=== PATIENT | female | born 1965 | race Caucasian/White ===

== ENCOUNTER → 2019-07-13 07:54 | Outpatient (BNVA) | payer OTHER, SELFPAY | PROVIDERS: PCP Family Medicine; Visit Provider Psychiatry & Neurology Psychiatry | DX: F41.1 Generalized anxiety disorder (principal); F43.23 Adjustment disorder with mixed anxiety and depressed mood; F43.12 Post-traumatic stress disorder, chronic | CPT/HCPCS: 99214 ==

== ENCOUNTER → 2019-08-25 07:45 | Outpatient (BNVA) | payer OTHER, SELFPAY | PROVIDERS: PCP Family Medicine; Visit Provider Psychiatry & Neurology Psychiatry | DX: F41.1 Generalized anxiety disorder (principal); F32.4 Major depressive disorder, single episode, in partial remission; F33.2 Major depressive disorder, recurrent severe without psychotic features | CPT/HCPCS: 99214 ==

== ENCOUNTER → 2019-08-27 08:35 | Outpatient (BNVA) | payer OTHER, SELFPAY | PROVIDERS: PCP Family Medicine; Visit Provider Obstetrics & Gynecology | DX: Z01.411 Encounter for gynecological examination (general) (routine) with abnormal findings (principal); Z90.710 Acquired absence of both cervix and uterus; Z12.72 Encounter for screening for malignant neoplasm of vagina; Z12.39 Encounter for other screening for malignant neoplasm of breast; Z78.9 Other specified health status; Z12.11 Encounter for screening for malignant neoplasm of colon | CPT/HCPCS: 88175 ==

== ENCOUNTER → 2020-07-21 09:02 | Outpatient (BNVA) | payer OTHER, SELFPAY | PROVIDERS: PCP Family Medicine; Visit Provider Obstetrics & Gynecology | DX: N95.1 Menopausal and female climacteric states (principal); N89.8 Other specified noninflammatory disorders of vagina; N95.8 Other specified menopausal and perimenopausal disorders; N94.10 Unspecified dyspareunia; N32.81 Overactive bladder | CPT/HCPCS: 83001 ==

== ENCOUNTER → 2020-07-27 13:41 | Outpatient (BNVA) | payer OTHER, SELFPAY | PROVIDERS: PCP Family Medicine; Visit Provider Obstetrics & Gynecology | DX: N94.10 Unspecified dyspareunia (principal) | CPT/HCPCS: 76830 ==

== ENCOUNTER 2021-05-16 06:13 | Emergency (ER) | payer OTHER, SELFPAY ==
[2021-05-16 06:14] VITALS: BP 141/94; PULSE 71; RESP 18; TEMP 36.6; O2SAT 99; BMI 19.8
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
--- NOTE | 2021-05-16 06:24 | ECG_ITS ---
[facility] Test Date: 2021-05-16 Pat Name: Samantha Raymond Department: Room: Gender: Female [employer]: : 1965 Requested By: Adolfo Greenwood Order Number: [id number] Sailaja MD: Leigh Ann Guerrero M.D. Measurements Intervals Barry Rate: 69 P: 79 CO: 176 QRS: 72 QRSD: 94 T: 68 QT: 416 QTc: 447 Interpretive Statements SINUS RHYTHM POSSIBLE LEFT ATRIAL ENLARGEMENT [-0.1mV P-WAVE IN V1/V2] LOW QRS VOLTAGE IN PRECORDIAL LEADS [QRS DEFLECTION < 1.0 mV IN CHEST LEADS] MODERATE T-WAVE ABNORMALITY, CONSIDER ANTERIOR ISCHEMIA [-0.1+ mV T-WAVE IN V3/V4] No previous ECG available for comparison Electronically Signed On 05-16-2021 9:15:30 PUBLIC INFORMATION DIRECTOR by Leigh Ann Guerrero M.D. [id number]
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
[2021-05-16] MEDS: morphine 4 mg/mL SDV 1 mL 6 MG IVP (06:47)
[2021-05-16] MEDS: ondansetron 2 mg/ML SDV 2 mL 4 MG IVP (06:47)
[2021-05-16] MEDS: lactated ringers 1,000 ML 999 ML IV (06:47)
[2021-05-16 06:51] LABS: Basophils # 0.1 10^3/uL (0.0-0.1); Basophils % 0.5 %; Eosinophils % 0.3 %; Hematocrit 44.2 % (37.0-47.0); Hemoglobin 14.5 g/dL (11.5-15.3); Lymphocytes # 1.6 10^3/uL (0.8-4.8); Lymphocytes % 13.1 %; Mean Corpuscular HGB Conc 32.8 g/dL (30.0-36.0); Mean Corpuscular Hemoglobin 29.8 pg (28.0-34.0); Mean Corpuscular Volume 90.9 fl (81-99); Mean Platelet Volume 10.8 fL (7.4-10.4); Monocytes # 0.5 10^3/uL (0.2-0.9); Monocytes % 4.3 %; Neutrophils % 80.1 %; Nucleated Red Blood Cells % 0 %; Platelet Count 254 10^3/cmm (130-400); Red Blood Count 4.86 10^6/uL (4.1-5.3); Red Cell Distribution Width 12.1 % (12.1-15.1); White Blood Count 12.2 10^3/uL (4.0-10.0)
[2021-05-16 07:13] LABS: Alanine Aminotransferase 13 U/L (0-33); Albumin Level 4.7 g/dL (3.5-5.2); Alkaline Phosphatase 89 IU/L (35-105); Anion Gap 15.6 (5-19); Aspartate Amino Transferase 20 U/L (0-32); Blood Urea Nitrogen 10 mg/dL (6-20); Calcium 8.8 mg/dL (8.5-10.5); Carbon Dioxide 23 mmol/L (22-29); Chloride 105 mmol/L (98-107); Globulin 2.5 g/dL (1.3-4.6); Glomerular Filtration Rate 103.8 mL/min (90-130); Glucose 102 mg/dL (65-115); Osmolality Calculated 289 mOsm/kg (285-295); Potassium 3.6 mmol/L (3.5-5.1); Sodium 140 mmol/L (136-145); Total Bilirubin 0.6 mg/dL (0.15-1.2); Total Protein 7.2 g/dL (6.6-8.7)
[2021-05-16 07:13] LABS: Add Urine Microscopic? NO; Charge for UA Resulting for Rev
[2021-05-16 07:16] LABS: Bilirubin Urine Neg (Negative); Blood Urine Neg (Negative); Glucose Urine UA Norm (Normal); Ketones Urine Negative (Negative); Leukocyte Esterase Urine Negative (Negative); Nitrate Urine Negative (Negative); Protein Urine Neg (Negative); Urine Appearance Clear (CLEAR); Urine Color Yellow (Yellow); Urobilinogen Urine Norm (Negative); pH Urine 7 (5-7)
[2021-05-16] MEDS: iohexol 300 mg/mL 100 mL Btl IV (07:17)
[2021-05-16 07:38] VITALS: BP 136/89; PULSE 80; RESP 20; O2SAT 94
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
--- NOTE | 2021-05-16 08:24 | PC.NURSE ---
C-COLLAR REMOVED PER PROVIDER. CT CLEARED.
[2021-05-16 08:26] VITALS: BP 152/103; PULSE 85; RESP 20; O2SAT 95
[2021-05-16] MEDS: morphine 4 mg/mL SDV 1 mL IVP (09:38)
[2021-05-16 10:20] VITALS: BP 152/103; PULSE 88; RESP 20; O2SAT 96
--- NOTE | 2021-05-16 14:08 | DCPLANNER ---
Addendum entered by Marlene Fraga 06/22/21 12:44: Patient had a follow up appointment scheduled for 06.18.21 with [facility] - patient did attend appointment. Addendum entered by Marlene Fraga 05/18/21 14:41: Patient had a follow up appointment scheduled for 05.17.21 with ortho - patient did not attend appointment. Original Note: manager french had message to schedule a follow up appointment for patient with ortho. manager french called the ortho clinic, spoke with Annabella, gave clinic patients information. manager french was told that patients information would be printed and reviewed. Clinic will call patient with appointment information. manager french also had message to schedule a follow up appointment with [facility]. manager french called [facility], spoke with Annabella, gave clinic patients information. A follow up appointment was for Friday, June 18, 2021 at 8:[address] Duenas at [facility]. manager french called phone number [phone], unable to speak with patient and unable to leave a voicemail for patient.
== END 2021-05-16 10:20 | disposition home or self-care (01) ==
PROVIDERS: Emergency Provider Family Medicine; PCP Family Medicine
DX: R59.1 Generalized enlarged lymph nodes (principal); S32.018A Other fracture of first lumbar vertebra, initial encounter for closed fracture; S22.028A Other fracture of second thoracic vertebra, initial encounter for closed fracture; F17.210 Nicotine dependence, cigarettes, uncomplicated; V89.2XXA Person injured in unspecified motor-vehicle accident, traffic, initial encounter
CPT/HCPCS: 71045; 71260; 72125; 72128; 72131; 74177; 80053; 81003; 85025; 93005; 96361; 96374; 96375; 96376; 97530; 97760; 99284; J2270; J2405; L0456; Q9967

== ENCOUNTER → 2022-03-07 10:10 | Outpatient (BNVA) | payer OTHER, SELFPAY | PROVIDERS: PCP Family Medicine; Visit Provider Registered Nurse Neonatal Intensive Care | DX: R50.9 Fever, unspecified (principal); B34.9 Viral infection, unspecified | CPT/HCPCS: 87400; 87426 ==

== ENCOUNTER 2022-08-16 06:36 | Outpatient (CLI) | payer OTHER, SELFPAY ==
--- NOTE | 2022-08-16 08:00 | CT_ITS ---
WS: [id number] LDCT LUNG CANCER SCREENING HISTORY: screen TECHNIQUE: Axial imaging performed from the apices to 1 cm below the costophrenic angles. Coronal and sagittal reformats are submitted with axial MIP series. All CT scans at [facility] use at least one of these dose optimization techniques: automated exposure control; mA and/or kV adjustment per patient size (includes targeted exams where dose is matched to clinical indication); or iterativ e reconstruction. DLP: 32.72 mGy.cm DIvol: Mean CTDIvol: 0.40 (mGy) COMPARISON: 05/16/2021 Diagnostic quality: Satisfactory Lungs: Mild hyperexpansion. Linear area of pleural thickening and scarring RIGHT lower lobe is simila r to 05/16/2021. Scattered granulomata. No mass or nodules. No endobronchial lesions. Heart: Normal size heart with no pericardial effusion. Other findings: No adenopathy. Benign calcified subcarinal lymph node. No adenopathy. Mild atheroscle rosis aorta. No adrenal mass. L1 anterior compression fracture, chronic. CT/CT lung screening [id number] IMPRESSION: LUNG-RADS: 2-Benign Appearance or Behavior FOLLOW UP: 12 Month: Continue annual screening with LDCT OTHER FINDINGS (S MODIFIER): None.
== END 2022-08-16 06:37 | disposition home or self-care (01) ==
LOC: RAD 06:38
PROVIDERS: PCP Family Medicine; Visit Provider Family Medicine
DX: Z12.2 Encounter for screening for malignant neoplasm of respiratory organs (principal); F17.219 Nicotine dependence, cigarettes, with unspecified nicotine-induced disorders
CPT/HCPCS: 71271

== ENCOUNTER 2023-03-26 08:18 | Outpatient (CLI) | payer MEDICAID, SELFPAY ==
--- NOTE | 2023-03-26 08:25 | MM_ITS ---
WS: [id number] BILATERAL 3D TOMOSYNTHESIS DIGITAL SCREENING MAMMOGRAPHY WITH CAD CLINICAL INFORMATION: Z00.00 - Encounter for general adult medical examination ... HISTORY: Screening mammogram. No current complaints. COMPARISON: 2013 TECHNIQUE: Bilateral CC and MLO views. FINDINGS: The breasts are composed of heterogeneous fibroglandular density tissue, which can limit the detectio n of small underlying mass lesions. No suspicious mass, asymmetry, calcifications, or architectural d istortion. No evidence of malignancy. IMPRESSION: MM/[place] [id number] BI-RADS: 1-Negative FOLLOW UP: 1 Year Follow-up Recommend return to annual screening mammography.
--- NOTE | 2023-03-26 08:31 | XRR_ITS ---
PROCEDURE INFORMATION: Exam: XR Cervical Spine Exam date and time: 03/26/2023 8:54 AM Age: 57 years old Clinical indication: Other: Cervical spinal stenosis TECHNIQUE: Imaging protocol: Radiologic exam of the cervical spine. Views: 2 or 3 views. COMPARISON: CT cervical spin wo con* [id number] 05/16/2021 7:06 AM FINDINGS: Bones/joints: Anterior plate and fusion C4 through C6. Anatomic alignment. Disc space narrowing and mild spurring C3-C4 and C6-C7. Soft tissues: The prevertebral soft tissues are normal. No fracture, lytic, or sclerotic bone lesion. XR/XR cervical spine 3V* [id number] IMPRESSION: Postoperative findings without visible complication.
--- NOTE | 2023-03-26 09:46 | XR_ITS ---
WS: [id number] LUMBAR SPINE TECHNIQUE: 3 views of the lumbar spine CLINICAL INFORMATION: ?LUMBAR FX COMPARISON: CT 05/16/2021 FINDINGS: Osteopenia. Mild lumbar curve convex LEFT. Mild compression fracture with anterior wedging at L1 was present in 2021 with slightly more anterior wedging today. Mild disc space narrowing L4-L5 and L5-S1. No other compression fractures. Vascular calcification. Chronic spondylolysis L5-S1 with minimal ant erolisthesis. IMPRESSION: 1. Mild compression fracture with anterior wedging at L1 was present in 2021 with slightly more ante rior wedging today. 2. Chronic spondylolysis L5-S1 with slight grade 1 anterolisthesis. 3. Mild lumbar curve convex LEFT. 4. Osteopenia.
== END 2023-03-26 08:19 | disposition home or self-care (01) ==
LOC: RAD 08:18
PROVIDERS: PCP Family Medicine; Visit Provider Family Medicine
DX: Z12.31 Encounter for screening mammogram for malignant neoplasm of breast (principal)
CPT/HCPCS: 72040; 72100; 77063; 77067

== ENCOUNTER 2023-03-26 09:37 | Outpatient (CLI) | payer OTHER, SELFPAY | END 2023-03-26 09:38 | disposition home or self-care (01) | PROVIDERS: PCP Family Medicine; Visit Provider Dermatology | DX: Z02.71 Encounter for disability determination (principal); M48.56XD Collapsed vertebra, not elsewhere classified, lumbar region, subsequent encounter for fracture with routine healing; M47.817 Spondylosis without myelopathy or radiculopathy, lumbosacral region; M85.88 Other specified disorders of bone density and structure, other site; M48.02 Spinal stenosis, cervical region; Z98.1 Arthrodesis status | CPT/HCPCS: 72040; 72100 ==

== ENCOUNTER 2024-03-17 08:39 | Outpatient (CLI) | payer MEDICAID, SELFPAY ==
--- NOTE | 2024-03-17 08:45 | MR_ITS ---
WS: [id number] MR CERVICAL SPINE WO/W HISTORY: M50.90 - Cervical disc disorder, unspecified, unspecified... TECHNIQUE: Sagittal T1, T2 and T2 inversion recovery; axial T2, T2 gradient and fiesta. Post gadolini um imaging with fat saturation technique. FINDINGS: Straightening of the normal cervical doses. Prior postoperative changes ACDF C4-C6. Cord si gnal is normal. No high-grade central canal stenosis. Mild chronic compression superior plate T2. C2-3: Spinal canal and foramen are patent. C3-4: Mild disc osteophyte complex with endplate ridging. Moderate LEFT and mild RIGHT bony foraminal narrowing. Mild facet arthropathy. Spinal canal is patent. C4-5: Postoperative changes ACDF. Mild bilateral bony foraminal narrowing. Mild facet arthropathy. Sp inal canal is patent. C5-6: Postoperative changes ACDF with susceptibility artifact. Moderate LEFT greater than RIGHT bony foraminal narrowing. Mild facet arthropathy. C6-7: Postoperative changes ACDF. Mild disc osteophyte complex. Moderate LEFT and mild RIGHT bony for aminal narrowing. Spinal canal is patent. Mild facet arthropathy. C7-T1: Shallow central protrusion. Moderate bilateral bony foraminal narrowing. Mild facet arthropath y. Mild central canal stenosis. MR/MR cervical spine wo/w [id number] IMPRESSION: 1. Straightening of the normal cervical lordosis. Postoperative changes ACDF C 4-C6. 2. Mild central canal stenosis C3-C4 and C7-T1. 3. Multilevel moderate bony foraminal narrowing LEFT C3-4, LEFT greater than R IGHT C5-C6 and LEFT C6-7. Moderate bilateral C7-T1 bony foraminal narrowing. 4. Cord signal appears normal.
[2024-03-17] MEDS: gadobenate dimeglumine 20 mL vial 12 ML IV (09:49)
== END 2024-03-17 08:40 | disposition home or self-care (01) ==
LOC: RAD 08:43
PROVIDERS: PCP Family Medicine Adult Medicine; Visit Provider Psychiatry & Neurology Neurology
DX: M50.90 Cervical disc disorder, unspecified, unspecified cervical region (principal); M48.02 Spinal stenosis, cervical region; G95.29 Other cord compression; M47.892 Other spondylosis, cervical region; M25.78 Osteophyte, vertebrae; M50.23 Other cervical disc displacement, cervicothoracic region; Z98.890 Other specified postprocedural states; M47.893 Other spondylosis, cervicothoracic region; M48.03 Spinal stenosis, cervicothoracic region
CPT/HCPCS: 72156

== ENCOUNTER 2024-06-16 13:57 | Outpatient (CLI) | payer MEDICAID, SELFPAY ==
--- NOTE | 2024-06-16 14:15 | CT_ITS ---
WS: [id number] LDCT LUNG CANCER SCREENING HISTORY: jessica dep remission; quit 2022; 41pk yr; screening TECHNIQUE: Axial imaging performed from the apices to 1 cm below the costophrenic angles. Coronal and sagittal reformats are submitted with axial MIP series. All CT scans at [facility] use at least one of these dose optimization techniques: automated exposure control; mA and/or kV adjustment per patient size (includes targeted exams where dose is matched to clinical indication); or iterative reconstruction. DLP: 45.30 mGy.cm DIvol: Mean CTDIvol: 0.80 (mGy) COMPARISON: 08/16/2022 Diagnostic quality: Satisfactory Lungs: New dependent changes at the LEFT lung base. Benign granuloma at the RIGHT lung base. 9 mm pleural-based mass in the RIGHT lower lobe is unchanged. Adjacent pleural thickening and scarring in the RIGHT lower lobe is stable. No new mass or nodule. Heart: Normal size heart with no pericardial effusion.. Other findings: Mild atherosclerosis aorta. Normal size pulmonary artery. RIGHT hilar calcified lymph nodes. Small hiatal hernia. No adrenal mass. Chronic L1 compression fracture. Prior healed right-sided rib fractures. CT/CT lung screening [id number] IMPRESSION: LUNG-RADS: 2-Benign Appearance or Behavior FOLLOW UP: 12 Month: Continue annual screening with LDCT OTHER FINDINGS (S MODIFIER): None.
== END 2024-06-16 13:58 | disposition home or self-care (01) ==
LOC: RAD 13:58
PROVIDERS: PCP Family Medicine; Visit Provider Family Medicine
DX: Z12.2 Encounter for screening for malignant neoplasm of respiratory organs (principal); F17.219 Nicotine dependence, cigarettes, with unspecified nicotine-induced disorders; R91.8 Other nonspecific abnormal finding of lung field; J84.10 Pulmonary fibrosis, unspecified; J98.4 Other disorders of lung; J92.9 Pleural plaque without asbestos; I70.0 Atherosclerosis of aorta; R59.0 Localized enlarged lymph nodes; K44.9 Diaphragmatic hernia without obstruction or gangrene; M48.56XD Collapsed vertebra, not elsewhere classified, lumbar region, subsequent encounter for fracture with routine healing; Z87.81 Personal history of (healed) traumatic fracture
CPT/HCPCS: 71271

== ENCOUNTER 2024-06-28 08:08 | Outpatient (CLI) | payer MEDICAID, SELFPAY ==
[2024-06-28 09:07] LABS: Basophils # 0.1 10^3/uL (0.0-0.1); Basophils % 0.8 %; Eosinophils # 0.1 10^3/uL (0.0-0.8); Eosinophils % 0.9 %; Hematocrit 49.2 % (36-47); Lymphocytes # 1.9 10^3/uL (0.8-4.8); Lymphocytes % 21.4 %; Mean Corpuscular HGB Conc 32.9 g/dL (30-55); Mean Corpuscular Hemoglobin 31.2 pg (27-33); Mean Corpuscular Volume 94.8 fl (85-98); Mean Platelet Volume 10.8 fL (7.4-10.4); Monocytes # 0.6 10^3/uL (0.2-0.9); Monocytes % 6.9 %; Neutrophils # 6.17 10^3/uL (1.8-7.7); Neutrophils % 69.7 %; Nucleated Red Blood Cells % 0 %; Platelet Count 251 10^3/cmm (157-399); Red Blood Count 5.19 10^6/uL (3.85-5.65); Red Cell Distribution Width 12.8 % (12.1-15.1); White Blood Count 8.85 10^3/uL (3.29-11.43)
[2024-06-28 09:33] LABS: Alanine Aminotransferase 8 U/L (0-33); Albumin Level 4.6 g/dL (3.5-5.2); Alkaline Phosphatase 86 U/L (35-105); Anion Gap 15.9 (5-19); Aspartate Amino Transferase 16 U/L (0-32); Blood Urea Nitrogen 12 mg/dL (6-20); Calcium 9.1 mg/dL (8.5-10.5); Carbon Dioxide 22 mmol/L (22-29); Chloride 106 mmol/L (98-107); Chol HDL Ratio 4.06 mg/dL (0.0-4.40); Cholesterol 215 mg/dL (0-200); Globulin 2.9 g/dL (1.3-4.6); Glomerular Filtration Rate 102.3 mL/min (90-130); Glucose 94 mg/dL (65-115); HDL Cholesterol 53 mg/dL (60-100); LDL Cholesterol Calculated 143 mg/dL (50-129); Osmolality Calculated 290 mOsm/kg (285-295); Potassium 3.9 mmol/L (3.5-5.1); Sodium 140 mmol/L (136-145); Thyroid Stimulating Hormone 2.01 uIU/mL (0.27-4.20); Total Bilirubin 0.8 mg/dL (0.15-1.2); Total Protein 7.5 g/dL (6.6-8.7); Triglycerides 97 mg/dL (0-150)
== END 2024-06-28 08:09 | disposition home or self-care (01) ==
LOC: LAB 08:09
PROVIDERS: PCP Family Medicine; Visit Provider Family Medicine
DX: Z13.1 Encounter for screening for diabetes mellitus (principal); Z13.6 Encounter for screening for cardiovascular disorders; F33.1 Major depressive disorder, recurrent, moderate; F41.1 Generalized anxiety disorder; R20.0 Anesthesia of skin
CPT/HCPCS: 36415; 80053; 80061; 84443; 85025